=== PATIENT | female | born 1955 | race Caucasian/White ===

== ENCOUNTER 2022-05-04 15:19 | Inpatient (IN) | payer OTHER, SELFPAY ==
[2022-05-04 17:04] LABS: Albumin 3.5 g/dL (3.4-5.0); Bilirubin Direct 0.1 mg/dL (0-0.2); Bilirubin Total 0.4 mg/dL (0.2-1.0); Magnesium 2.3 mg/dL (1.8-2.4); Potassium 3.7 mmol/L (3.5-5.1); Protein, Total 7.2 g/dL (6.4-8.2)
[2022-05-04 17:06] LABS: Troponin High Sensitivity 172.4 pg/mL (<58.9)
[2022-05-04 17:11] LABS: Absolute Lymphocytes (CBC) 2.4 K/uL (0.7-4.9); Hematocrit 39.7 % (36.0-45.0); MCV 88.8 fL (80-100); MPV 7.4 fL (7.6-11.3); Protime INR 1.09; RBC Red Blood Cell Count 4.47 M/uL (3.86-4.86)
[2022-05-04] MEDS ORDERED: ASPIRIN 81 MG CHEWABLE TABLET ONE (17:20)
[2022-05-04] MEDS ORDERED: FUROSEMIDE 20 MG/ 2ML VIAL ONE (17:34)
[2022-05-04] MEDS ORDERED: LORazepam 2 MG/ML VIAL ONE (17:38)
--- NOTE | 2022-05-04 17:43 | RAD REPORT ---
EXAM DESCRIPTION: RAD - Chest Single View - 05/04/2022 5:01 pm CLINICAL HISTORY: SOB COMPARISON: No prior chest film TECHNIQUE: AP portable chest image was obtained 05/04/2022 5:01 pm . FINDINGS: Lung volumes are low. Diffusely prominent interstitial pattern throughout both lung berkowitz . Bilateral pleural effusions are present. Cardiomegaly and central vascular engorgement or seen. Tra maite is midline. No pneumothorax. No acute bony abnormality seen. No acute aortic findings suspected. IMPRESSION: Mild CHF/volume overload pattern with small bilateral pleural effusions.
--- NOTE | 2022-05-04 17:53 | RAD REPORT ---
EXAM DESCRIPTION: CT - Chest For Pe Angio - 05/04/2022 5:35 pm CLINICAL HISTORY: shortness of breath COMPARISON: No comparisons TECHNIQUE: Dynamically enhanced 3 mm thick images of the chest were obtained during administration o f approximately 150mL Isovue 370 IV contrast. Coronal and oblique MIP reconstruction images were gene rated and reviewed. Exam utilizes a protocol to evaluate the pulmonary arterial tree. All CT scans are performed using dose optimization technique as appropriate and may include automated exposure control or mA/KV adjustment according to patient size. FINDINGS: No pulmonary emboli are identified. No focal mass consolidation. Interstitial markings are prominent throughout both lung berkowitz. Bronchi al wall thickening is present. There is no endobronchial lesions seen. Small bilateral pleural effusi ons are present. Lung base atelectasis is present. Heart size is enlarged. Pericardial thickening and / or effusion present up to 10 mm in thickness. No acute aortic finding. Aortic opacification is not optimal on a PE protocol study. No pneumothorax. No mediastinal or hilar suspicious masses. No chest wall masses or abnormal axillary lymphadenopathy. IMPRESSION: No pulmonary emboli identified. Diffuse interstitial edema or infiltrate pattern along with cardiomegaly. Failure or volume overload would be a primary consideration. Cardiomegaly also has a 10 millimeter thick rim of pericardial thickening and/ or effusion. Small bilateral pleural effusions with lung base atelectasis.
--- NOTE | 2022-05-04 18:23 | ER ---
Nurse's Notes [facility] Name: Diana Manuel Age: 67 yrs Sex: Female : 1955 Arrival Date: 05/04/2022 Time: 15:21 Bed 25 Private MD: Diagnosis: Unspecified combined systolic (congestive) and diastolic (congestive) heart failure;Pleural effusion, not elsewhere classified;Subsequent non-ST elevation (NSTEMI) myocardial infarction Presentation: 05/04 15:37 Chief complaint: Patient states: she feels like she has had a hard time breathing for ap3 approx one month now, and has noticed that both of her feet have started to swell as of last week. Coronavirus screen: At this time, the client does not indicate any symptoms associated with coronavirus-19. Ebola Screen: No symptoms or risks identified at this time. Risk Assessment: Do you want to hurt yourself or someone else? Patient reports no desire to harm self or others. Onset of symptoms was March 2022. 15:37 Method Of Arrival: Ambulatory ap3 15:40 Initial Sepsis Screen: Does the patient meet any 2 criteria? No. Patient's initial ap3 sepsis screen is negative. Does the patient have a suspected source of infection? No. Patient's initial sepsis screen is negative. 15:40 Acuity: SHERON 3 ap3 Triage Assessment: 15:39 General: Appears distressed, Behavior is anxious. Pain: Denies pain. Neuro: Level of ap3 Consciousness is awake, alert, obeys commands, Oriented to person, place, time, situation. Cardiovascular: Patient's skin is warm and dry. Respiratory: Reports shortness of breath Airway is patent Respiratory effort is even, unlabored, Respiratory pattern is regular, symmetrical, Onset: The symptoms/episode began/occurred over the last month, the patient has mild shortness of breath. Musculoskeletal: Swelling present in right foot and left foot. Historical: - Allergies: 15:38 No Known Allergies; ap3 - Home Meds: 15:38 None [Active]; ap3 - PMHx: 15:38 Anxiety; ap3 - Immunization history:: Client reports having NOT received the Covid vaccine. - Social history:: Smoking status: Patient reports the use of cigarette tobacco products, smokes one pack cigarettes per day. Patient uses alcohol, occasionally. Screenin:40 Abuse screen: Denies threats or abuse. Nutritional screening: No deficits noted. ap3 Tuberculosis screening: No symptoms or risk factors identified. 18:43 Fall Risk IV access (20 points). Total Nguyễn Fall Scale indicates No Risk (0-24 pts). kr3 Assessment: 17:18 General: Appears distressed, uncomfortable, Behavior is calm, cooperative, anxious. kr3 Cardiovascular: Rhythm is sinus tachycardia. Respiratory: Airway is patent. 18:41 Reassessment: No changes from previously documented assessment. Patient and/or family kr3 updated on plan of care and expected duration. Pain level reassessed. Patient is alert, oriented x 3, equal unlabored respirations, skin warm/dry/pink. 20:03 Reassessment: pt ambulating to bathroom. steady gait, NAD. as6 Vital Signs: 15:37 Pulse 113; Resp 19; Temp 98.8; Pulse Ox 97% ; Weight 62.6 kg; Height 5 ft. 4 in. ap3 (162.56 cm); 15:40 BP 159 / 93; ap3 16:20 BP 162 / 111; Pulse 98; Resp 20; Pulse Ox 98% on R/A; kr3 17:20 BP 160 / 99; Pulse 97; Resp 20; Pulse Ox 99% on R/A; kr3 18:40 BP 178 / 112; Pulse 108; Resp 20; Pulse Ox 97% on R/A; kr3 20:03 BP 137 / 93; Pulse 80; Resp 17 S; Pulse Ox 96% on R/A; as6 15:37 Body Mass Index 23.69 (62.60 kg, 162.56 cm) ap3 ED Course: 15:21 Patient arrived in ED. mr 15:23 Shiv Avila PA is PHCP. cp 15:23 Shiv Simon MD is Attending Physician. cp 15:41 Triage completed. ap3 15:41 Arm band placed on left wrist. ap3 16:00 Mary Otoole, DONOVAN is Primary Nurse. kr3 16:25 Inserted saline lock: 22 gauge in left antecubital area, using aseptic technique. Blood kr3 collected. 17:03 XRAY Chest (1 view) In Process Unspecified. EDMS 17:37 CT Chest For PE Angio In Process Unspecified. EDMS 18:14 US Extremity Venous W Compression Porfirio In Process Unspecified. EDMS 18:22 Kristyn Carballo PA is Hospitalizing Provider. cp 18:42 No provider procedures requiring assistance completed. kr3 19:37 Primary Nurse role handed off by Mary Otoole RN as6 19:37 Attila Osuna, DONOVAN is Primary Nurse. as6 Administered Medications: 17:14 Drug: Aspirin Chewable Tablet 324 mg Route: PO; kr3 18:45 Follow up: Response: No adverse reaction kr3 17:35 Drug: Lasix (furosemide) 20 mg Route: IVP; Site: right antecubital; kr3 18:38 Follow up: Response: No adverse reaction; RASS: Alert and Calm (0) kr3 17:37 Drug: Ativan (LORazepam) 0.5 mg Route: IVP; Site: right antecubital; kr3 18:39 Follow up: Response: No adverse reaction; RASS: Alert and Calm (0) kr3 18:22 Drug: Metoprolol 25 mg Route: PO; kr3 18:25 Drug: Lovenox (enoxaparin) 1 mg/kg Route: Sub-Q; Site: right lower abdomen; kr3 Outcome: 18:23 Decision to Hospitalize by Provider. cp 05/06 09:58 Patient left the ED. jd3 Signatures: Dispatcher [employer] EDME Dashawn Kristin mr Shiv Avila PA PA Joseluis Yao RN RN jd3 Adele Agosto RN RN ap3 Attila Osuna, DONOVAN MAN as6 Mary Otoole, DONOVAN RN kr3 Corrections: (The following items were deleted from the chart) 05/04 18:38 18:38 Response: No adverse reaction kr3 kr3
--- NOTE | 2022-05-04 18:24 | EDPHYS ---
Physician Documentation [facility] Name: Diana Manuel Age: 67 yrs Sex: Female : 1955 Arrival Date: 05/04/2022 Time: 15:21 Bed 25 Private MD: ED Physician Shiv Simon HPI: 05/04 15:55 This 67 yrs old Female presents to ER via Ambulatory with complaints of Breathing cp Difficulty, Feet Swelling. 15:55 The patient has shortness of breath at rest. cp 15:55 Onset: The symptoms/episode began/occurred 1 month(s) ago. Duration: The symptoms are cp continuous, and are steadily getting worse. Associated signs and symptoms: Pertinent positives: swelling of feet, Pertinent negatives: chest pain, diaphoresis, fever, hemoptysis, vomiting. Severity of symptoms: in the emergency department the symptoms are unchanged despite home interventions. Historical: - Allergies: 15:38 No Known Allergies; ap3 - Home Meds: 15:38 None [Active]; ap3 - PMHx: 15:38 Anxiety; ap3 - Immunization history:: Client reports having NOT received the Covid vaccine. - Social history:: Smoking status: Patient reports the use of cigarette tobacco products, smokes one pack cigarettes per day. Patient uses alcohol, occasionally. ROS: 16:00 Constitutional: Negative for body aches, chills, fever, poor PO intake. cp 16:00 Eyes: Negative for injury, pain, redness, and discharge. cp 16:00 Cardiovascular: Positive for edema, Negative for chest pain, palpitations. cp 16:00 Neck: Negative for pain with movement, pain at rest, stiffness. cp 16:00 Respiratory: Positive for shortness of breath, on exertion. Negative for cough, wheezing. 16:00 Abdomen/GI: Negative for abdominal pain, vomiting, diarrhea, constipation. 16:00 Back: Negative for pain at rest, pain with movement. 16:00 Neuro: Negative for altered mental status, dizziness, headache, numbness, syncope, weakness. 16:00 All other systems are negative. Exam: 16:05 Constitutional: The patient appears in no acute distress, alert, awake, cp non-diaphoretic, non-toxic, well developed, well nourished, anxious. 16:05 Head/Face: Normocephalic, atraumatic. cp 16:05 Eyes: Periorbital structures: appear normal, Conjunctiva: normal, no exudate, no injection, Sclera: no appreciated abnormality, Lids and lashes: appear normal, bilaterally. 16:05 ENT: External ear(s): are unremarkable, Nose: is normal, Mouth: Lips: moist, Oral mucosa: moist, Posterior pharynx: Airway: no evidence of obstruction, patent. 16:05 Neck: ROM/movement: is normal, is supple, without pain, no range of motions limitations. 16:05 Chest/axilla: Inspection: normal, Palpation: is normal, no crepitus, no tenderness. 16:05 Cardiovascular: Rate: tachycardic, Rhythm: regular, Edema: pedal edema, that is mild, ankle edema, that is mild, JVD: is not appreciated. 16:05 Respiratory: the patient does not display signs of respiratory distress, Respirations: labored breathing, is not present, shallow respirations, that is mild, Breath sounds: decreased breath sounds, that are moderate, are heard in the left posterior lower lobe, right posterior middle lobe and right posterior lower lobe, stridor, is not appreciated, wheezing: is not appreciated. 16:05 Abdomen/GI: Inspection: abdomen appears normal, Palpation: abdomen is soft and non-tender, in all quadrants. 16:05 Back: pain, is absent, ROM is normal. 16:05 Skin: cellulitis, is not appreciated, no rash present. 16:05 Neuro: Orientation: to person, place \\T\\ time. Mentation: is normal, Cerebellar function: is grossly normal, Motor: moves all fours, strength is normal, Sensation: is normal. 16:25 ECG was reviewed by the Attending Physician. cp Vital Signs: 15:37 Pulse 113; Resp 19; Temp 98.8; Pulse Ox 97% ; Weight 62.6 kg; Height 5 ft. 4 in. ap3 (162.56 cm); 15:40 BP 159 / 93; ap3 16:20 BP 162 / 111; Pulse 98; Resp 20; Pulse Ox 98% on R/A; kr3 17:20 BP 160 / 99; Pulse 97; Resp 20; Pulse Ox 99% on R/A; kr3 18:40 BP 178 / 112; Pulse 108; Resp 20; Pulse Ox 97% on R/A; kr3 20:03 BP 137 / 93; Pulse 80; Resp 17 S; Pulse Ox 96% on R/A; as6 15:37 Body Mass Index 23.69 (62.60 kg, 162.56 cm) ap3 MDM: 16:00 Differential diagnosis: CHF exacerbation, Chronic Obstructive Pulmonary Disease cp Myocardial Infarction pneumonia, Pneumothorax pulmonary edema, Pulmonary Embolism Unstable Angina. 16:02 Patient medically screened. ryan 18:12 Data reviewed: vital signs, nurses notes, lab test result(s), EKG, radiologic studies, cp CT scan, plain films, ultrasound. Test interpretation: by ED physician or midlevel provider: ECG, plain radiologic studies. Physician consultation: Kristyn LEGER was called at 18:13, was contacted at 18:13, regarding admission, to the telemetry unit. patient's condition, and will see patient in ED, shortly. 05/04 15:51 Order name: Basic Metabolic Panel; Complete Time: 17:07 cp 05/04 17:08 Interpretation: Normal except: CL 109; GLUC 121; BUN 19; GFR 49. cp 05/04 15:51 Order name: CBC with Diff; Complete Time: 17:58 cp 05/04 17:58 Interpretation: Normal except: MPV 7.4. cp 05/04 15:51 Order name: D-Dimer; Complete Time: 17:58 cp 05/04 17:58 Interpretation: Abnormal: D-DIMER 965. cp 05/04 15:51 Order name: LFT's; Complete Time: 17:07 cp 05/04 15:51 Order name: Magnesium; Complete Time: 17:07 cp 05/04 15:51 Order name: NT PRO-BNP; Complete Time: 17:07 cp 05/04 17:08 Interpretation: Abnormal: NT PRO-BNP 7941. cp 05/04 15:51 Order name: PT-INR; Complete Time: 17:58 cp 05/04 18:00 Interpretation: Reviewed. cp 05/04 15:51 Order name: Troponin HS; Complete Time: 17:07 cp 05/04 17:08 Interpretation: Abnormal: Troponin HS 172.4. cp 05/04 15:51 Order name: COVID-19 SARS RT PCR (Document "Date of Onset" if Symptomatic); Complete cp Time: 18:10 05/04 23:10 Order name: Creatine Phosphokinase; Complete Time: 23:19 EDMS 05/04 23:10 Order name: CKMB Creatine Kinase MB; Complete Time: 23:19 EDMS 05/04 23:10 Order name: Troponin High Sensitivity; Complete Time: 23:19 EDSC 05/05 02:55 Order name: CBC with Automated Diff; Complete Time: 03:12 EDMS 05/05 03:09 Order name: Basic Metabolic Panel; Complete Time: 03:12 [facility] 05/04 15:51 Order name: XRAY Chest (1 view); Complete Time: 17:58 cp 05/04 17:58 Interpretation: Report review. 05/04 15:51 Order name: EKG; Complete Time: 15:52 cp 05/04 15:51 Order name: US Extremity Venous W Compression Porfirio; Complete Time: 20:13 cp 05/04 17:09 Order name: CT Chest For PE Angio; Complete Time: 17:58 cp 05/04 18:00 Interpretation: Report reviewed. 05/05 03:09 Order name: Troponin High Sensitivity; Complete Time: 03:12 [facility] 05/05 03:09 Order name: Lipid Profile; Complete Time: 03:12 EDSC 05/05 03:09 Order name: Magnesium; Complete Time: 03:12 EDMS 05/05 03:09 Order name: Thyroid Stimulating Hormone; Complete Time: 03:12 EDSC 05/05 03:18 Order name: Hemoglobin A1c; Complete Time: 05:06 EDMS 05/06 05:57 Order name: CBC with Automated Diff EDSC 05/06 05:57 Order name: Basic Metabolic Panel [facility] 05/04 15:51 Order name: Cardiac monitoring; Complete Time: 16:10 05/04 15:51 Order name: EKG - Nurse/Tech; Complete Time: 16:10 cp 05/04 15:51 Order name: IV Saline Lock; Complete Time: 16:04 cp 05/04 15:51 Order name: Labs collected and sent; Complete Time: 16:04 05/04 15:51 Order name: O2 Per Protocol; Complete Time: 16:02 05/04 15:51 Order name: O2 Sat Monitoring; Complete Time: 16:02 cp EC:25 Rate is 106 beats/min. Rhythm is regular. NM interval is normal. QRS interval is cp normal. QT interval is normal. T waves are Inverted in leads aVL, aVR. Interpreted by me. Reviewed by me. Administered Medications: 17:14 Drug: Aspirin Chewable Tablet 324 mg Route: PO; kr3 18:45 Follow up: Response: No adverse reaction kr3 17:35 Drug: Lasix (furosemide) 20 mg Route: IVP; Site: right antecubital; kr3 18:38 Follow up: Response: No adverse reaction; RASS: Alert and Calm (0) kr3 17:37 Drug: Ativan (LORazepam) 0.5 mg Route: IVP; Site: right antecubital; kr3 18:39 Follow up: Response: No adverse reaction; RASS: Alert and Calm (0) kr3 18:22 Drug: Metoprolol 25 mg Route: PO; kr3 18:25 Drug: Lovenox (enoxaparin) 1 mg/kg Route: Sub-Q; Site: right lower abdomen; kr3 Disposition Summary: 05/04/22 18:23 Hospitalization Ordered Hospitalization Status: Inpatient Admission cp Provider: Kristyn Carballo cp Condition: Stable cp Problem: new cp Symptoms: have improved cp Bed/Room Type: Standard cp Location: [facility] [place] ER HOLD(05/04/22 20:08) cg Room Assignment: ERHOLD-(05/04/22 20:08) cg Diagnosis - Unspecified combined systolic (congestive) and diastolic (congestive) heart failure cp - Pleural effusion, not elsewhere classified cp - Subsequent non-ST elevation (NSTEMI) myocardial infarction cp Forms: - Medication Reconciliation Form cp - SBAR form cp Signatures: Dispatcher [employer] EDShiv Dobbs MD MD cha Page, Corey, PA PA cp Garcia, Cindy, RN RN cg Adele Agosto RN RN ap3 Kristyn Carballo PA PA sb3 Mary Otoole RN RN kr3 Corrections: (The following items were deleted from the chart) 20:08 18:23 Telemetry/MedSurg (Inpatient) cp cg 20:08 18:23 cp cg
[2022-05-04] MEDS ORDERED: ENOXAPARIN 60 MG/0.6 ML SQ ONE (18:26)
[2022-05-04] MEDS ORDERED: METOPROLOL TAR 25 MG TAB ONE (18:26)
--- NOTE | 2022-05-04 19:43 | P.HP ---
Certification for Inpatient Patient admitted to: Observation With expected LOS: <2 Midnights Patient will require the following post-hospital care: None Practitioner: I am a practitioner with admitting privileges, knowledge of patient current condition, hospital course, and medical plan of care. Services: Services provided to patient in accordance with Admission requirements found in Title 42 Section 412.3 of the Code of Federal Regulations Patient History Date of Service: 05/04/22 Primary Care Provider: Josef Reason for admission: Acute CHF History of Present Illness: Patient is a 67-year-old female with anxiety who presented to the ED with complaints of shortness of breath for 1 month and feet swelling for 1 week. She was hypertensive and tachycardic initially but saturating appropriately on room air. Afebrile. Labs significant for BNP 7941, troponin high-sensitivity 172.4, D-dimer 965. EKG without ST changes. Chest x-ray significant for mild CHF with bilateral pleural effusions. CT chest angio negative for PE. Extremity venous ultrasound negative for DVT. She was given 324 mg aspirin, Ativan, 20 mg IV L asix, 25 metoprolol, and therapeutic Lovenox in the ED. upon my assessment, patient is complaining of shortness of breath. She denies any cardiac history or taking any medications on a daily basis. She denies chest pain. She is admitted for further evaluation and treatment. Home medications list reviewed: Yes (NA) - Past Medical/Surgical History Diabetic: No -: Anxiety -: Hysterectomy Psychosocial/ Personal History: Patient lives at home with a roommate. - Family History Sister -: Stroke - Social History Smoking Status: Current every day smoker Alcohol use: Yes CD- Drugs: No Caffeine use: Yes Place of Residence: Home Review of Systems Respiratory: Shortness of Breath Cardiovascular: Edema Physical Examination - Physical Exam General: Alert, In no apparent distress HEENT: Atraumatic, PERRLA, EOMI, Sclerae nonicteric Neck: Supple, Without JVD or thyroid abnormality Respiratory: Diminished, Crackles/rales Cardiovascular: Regular rate/rhythm, Normal S1 S2, Edema (1+ pedal pitting edema) Gastrointestinal: Normal bowel sounds, No tenderness Musculoskeletal: No tenderness Integumentary: No rashes Neurological: Normal speech, Normal strength at 5/5 x4 extr, Normal tone, Normal affect - Studies Laboratory Data (last 24 hrs) 05/04/22 16:30: PT 12.0, INR 1.09 05/04/22 16:30: WBC 10.1, Hgb 13.2, Hct 39.7, Plt Count 291 05/04/22 16:30: Sodium 142, Potassium 3.7, BUN 19 H, Creatinine 1.22, Glucose 121 H, Magnesium 2.3, Total Bilirubin 0.4, AST 26, ALT 82 H, Alkaline Phosphatase 106 Assessment and Plan - Problems (Diagnosis) (1) Acute CHF Current Visit: Yes Status: Acute Qualifiers: Heart failure type: unspecified Qualified Code(s): I50.9 - Heart failure, unspecified (2) Elevated troponin Current Visit: Yes Status: Acute (3) Elevated d-dimer Current Visit: Yes Status: Acute - Plan -Cardiology consulted and echo ordered. Monitor on telemetry. Patient denies cardiac history. She is an everyday smoker. -Elevated troponin and d-dimer likely secondary to acute CHF. CT angio negative for PE. US negative for DVT. Therapeutic lovenox given in ED. -20 mg lasix given in ED. Monitor output and adjust dosing as appropriate. Patient has never taken lasix before. -Repeat troponin ordered along with CPK and CKMB -Aspirin, atorvastatin, and metoprolol daily -Monitor and reconcile electrolytes per protocol -Lipid panel, TSH, and A1C ordered -Lovenox for VTE ppx -Full code Discharge Plan: Home Plan to discharge in: 24 Hours - Advance Directives Does patient have a Living Will: No Does patient have a Durable POA for Healthcare: No - Code Status/Comfort Care Code Status Assessed: Yes (Full) Critical Care: No Time Spent Managing Pts Care (In Minutes): 50
--- NOTE | 2022-05-04 19:59 | RAD REPORT ---
EXAM DESCRIPTION: US - Extrem Venous W Compress Porfirio - 05/04/2022 6:12 pm CLINICAL HISTORY: SWELLING COMPARISON: None. TECHNIQUE: Real-time sonographic evaluation of the bilateral lower extremity common femoral, superfi cial femoral, popliteal and posterior tibial veins was performed. FINDINGS: Normal compressibility, flow augmentation, phasic flow and spontaneous flow are identified in the left and right lower extremity common femoral, superficial femoral, popliteal and posterior t ibial veins. No intraluminal filling defects seen. IMPRESSION: No DVT in either lower extremity.
[2022-05-04 21:07] VITALS: BMI 23.6
[2022-05-04] MEDS ORDERED: ONDANSETRON 4 MG/2 ML VIAL IV PRN (21:10)
[2022-05-04] MEDS ORDERED: ALPRAZOLAM 0.25 MG TABLET PO PRN (21:10)
[2022-05-04] MEDS ORDERED: ACETAMINOPHEN 500 MG TAB PO PRN (21:10)
[2022-05-04] MEDS ORDERED: ALBUTEROL 2.5 MG/3 ML NEB SOL NEB PRN (21:10)
[2022-05-04] MEDS: ATORVASTATIN 40 MG TAB PO SCH (21:10)
[2022-05-04] MEDS ORDERED: ATORVASTATIN 20 MG TAB ONE (21:32)
[2022-05-04 23:09] LABS: Troponin High Sensitivity 140.6 pg/mL (<58.9)
[2022-05-05] MEDS ORDERED: ALBUTEROL 2.5 MG/3 ML NEB SOL ONE ×2 (00:06→00:07)
[2022-05-05] MEDS ORDERED: ALPRAZOLAM 0.25 MG TABLET ONE (00:32)
[2022-05-05 02:50] LABS: Hematocrit 35.4 % (36.0-45.0); Lymphocytes % 28.7 % (15.3-44.8); MCV 86.7 fL (80-100); MPV 7.2 fL (7.6-11.3); RBC Red Blood Cell Count 4.08 M/uL (3.86-4.86)
[2022-05-05 03:08] LABS: Magnesium 2.1 mg/dL (1.8-2.4); Potassium 3.9 mmol/L (3.5-5.1); Thyroid Stimulating Hormone 2.74 uIU/mL (0.360-3.740)
[2022-05-05 03:09] LABS: Troponin High Sensitivity 120.2 pg/mL (<58.9)
[2022-05-05] MEDS ORDERED: METOPROLOL TAR 25 MG TAB PO SCH (06:00)
[2022-05-05] MEDS ORDERED: NICOTINE 21 MG/PAT TD ONE (06:15)
[2022-05-05] MEDS ORDERED: METOPROLOL TAR 25 MG TAB ONE (06:16)
[2022-05-05] MEDS ORDERED: ONDANSETRON 4 MG/2 ML VIAL ONE (06:57)
[2022-05-05] MEDS ORDERED: PNEUMOCOCCAL VACCINE 0.5 ML IMVAC ONE (08:00)
[2022-05-05] MEDS ORDERED: NICOTINE 21 MG/PAT TD SCH (09:00)
[2022-05-05] MEDS: FUROSEMIDE 20 MG/ 2ML VIAL IV SCH ×2 (09:00→17:00)
[2022-05-05] MEDS ORDERED: ENOXAPARIN 40 MG/0.4 ML SQ SCH (09:00)
[2022-05-05] MEDS ORDERED: ASPIRIN EC 81 MG TAB PO SCH (09:00)
[2022-05-05] MEDS ORDERED: FUROSEMIDE 20 MG/ 2ML VIAL ONE ×2 (10:29→17:39)
[2022-05-05] MEDS ORDERED: ASPIRIN EC 81 MG TAB PO ONE (10:30)
[2022-05-05] MEDS ORDERED: ENOXAPARIN 40 MG/0.4 ML SQ ONE (10:30)
--- NOTE | 2022-05-05 12:38 | EKG ---
Test Date: 2022-05-04 Test Time: 16:18:07 Apricot Washer: LML MEASUREMENT RESULTS: Intervals: Rate: 106 AR: 164 QRSD: 72 QT: 358 QTc: 475 Roscoe: P: 71 AR: 164 QRS: -14 T: 77 INTERPRETIVE STATEMENTS: Sinus tachycardia with occasional premature ventricular complexes Possible Anterior infarct, age undetermined Abnormal ECG No previous ECG available for comparison Electronically Signed On 05-05-22 12:37:03 CDT by Pineda Waller
--- NOTE | 2022-05-05 13:04 | ECHO ---
HEIGHT: 5 ft 4 in WEIGHT: 138 lb 0.15 oz DATE OF STUDY: 05/05/[address]: Kristyn Carballo 2-DIMENSIONAL: YES M.MODE: YES DOPPLER: YES COLOR FLOW: YES TDS: NO PORTABLE: YES DEFINITY: NO BUBBLE STUDY: NO DIAGNOSIS: ACUTE CONGESTIVE FAILURE CARDIAC HISTORY: CATHERIZATION: SURGERY: PROSTHETIC VALVE: PACEMAKER: MEASUREMENTS (cm) DIASTOLIC (NORMALS) SYSTOLIC (NORMALS) IVSd 1.0 (0.6-1.2) LA Diam 3.9 (1.9-4.0) LVEF 30% LVIDd 4.9 (3.5-5.7) LVIDs 4.2 (2.0-3.5) %FS 14% LVPWd 1.1 (0.6-1.2) Ao Diam 2.4 (2.0-3.7) 2 DIMENSIONAL ASSESSMENT: RIGHT ATRIUM: NORMAL LEFT ATRIUM: NORMAL RIGHT VENTRICLE: NORMAL LEFT VENTRICLE: DEPRESSED FUNCTION TRICUSPID VALVE: MITRAL VALVE: PULMONIC VALVE: NORMAL AORTIC VALVE: NORMAL PERICARDIAL EFFUSION: SMALL AORTIC ROOT: NORMAL LEFT VENTRICULAR WALL MOTION: SEVERE GLOBAL HYPOKINESIS WITH APICAL/ANTERIOR AKINESIS. DOPPLER/COLOR FLOW: SEE BELOW. COMMENTS: SEVERELY DEPRESSED LEFT VENTRICULAR EJECTION FRACTION OF 25-30%. WALL MOTION ABNORMALITIES STATED ABOVE. MODERATE DIASTOLIC DYSFUNCTION. MILD TRICUSPID, MITRAL AND AORTIC REGURGITATION. MODERATE PULMONARY HYPERTENSION. TECHNOLOGIST: Geno MEDRANO
[2022-05-05] MEDS ORDERED: ALBUTEROL 2.5 MG/3 ML NEB SOL NEB PRN (15:00)
--- NOTE | 2022-05-05 16:42 | P.PN ---
Subjective Date of Service: 05/05/22 Primary Care Provider: Josef Chief Complaint: Acute CHF Patient states she feels better today. She reports significant improvement in shortness of breath. She denies any chest pain. Physical Examination - Vital Signs Temperature: 97.6 F Blood Pressure: 124/80 Pulse: 75 Respirations: 17 Pulse Ox (%): 98 - Studies Laboratory Data (last 24 hrs) 05/04/22 16:30: PT 12.0, INR 1.09 05/04/22 16:30: WBC 10.1, Hgb 13.2, Hct 39.7, Plt Count 291 05/04/22 16:30: Sodium 142, Potassium 3.7, BUN 19 H, Creatinine 1.22, Glucose 121 H, Magnesium 2.3, Total Bilirubin 0.4, AST 26, ALT 82 H, Alkaline Phosphatase 106 Assessment And Plan - Current Problems (Diagnosis) (1) Acute systolic heart failure Current Visit: Yes Status: Acute (2) Elevated troponin Current Visit: Yes Status: Acute - Plan Physical Exam General: Alert, In no apparent distress HEENT: Atraumatic, PERRLA, EOMI, Sclerae nonicteric Neck: Supple, Without JVD. Respiratory: Bilateral Crackles/rales Cardiovascular: Regular rate/rhythm, Normal S1 S2, Edema (1+ pedal pitting edema) Gastrointestinal: Normal bowel sounds, No tenderness Musculoskeletal: No tenderness Integumentary: No rashes Neurological: Normal speech, Normal strength at 5/5 x4 extr, Normal tone, Normal affect Echocardiogram reviewed and reporting EF of 20 to 25%. New onset CHF. Etiology unknown. Need to rule out CAD. Elevated troponin trended down. ACS not likely. Elevated troponin likely secondary to demand leak Cardiology to follow Continue Lasix. CT angio negative for PE. US negative for DVT. Therapeutic lovenox given in ED. Aspirin. Start low-dose lisinopril and Coreg. Discontinue metoprolol LDL above target. Continue Lipitor Lovenox for VTE ppx Full code
[2022-05-05] MEDS ORDERED: carvediloL 3.125 MG TAB PO SCH (18:00)
[2022-05-05] MEDS: ATORVASTATIN 40 MG TAB PO SCH (20:50)
[2022-05-05] MEDS ORDERED: ATORVASTATIN 20 MG TAB ONE (20:54)
[2022-05-05 23:35] VITALS: TEMP 98.1
[2022-05-06 01:28] VITALS: O2SAT 95
[2022-05-06 02:50] LABS: Lymphocytes % 19.8 % (15.3-44.8); MCV 88.4 fL (80-100); MPV 7.6 fL (7.6-11.3); RBC Red Blood Cell Count 4.07 M/uL (3.86-4.86)
[2022-05-06 04:41] LABS: Potassium 3.7 mmol/L (3.5-5.1)
[2022-05-06 05:48] VITALS: BP 116/58
[2022-05-06] MEDS ORDERED: lisinopriL 5 MG TAB PO SCH (09:00)
--- NOTE | 2022-05-06 13:15 | P.DS ---
Admission Date: 05/05/22 Discharge Date: 05/06/22 Primary Care Provider: Josef Disposition: ROUTINE DISCHARGE Discharge Condition: FAIR Reason for Admission: Acute CHF - Problems (1) Acute systolic heart failure Status: Acute (2) Elevated troponin Status: Acute (3) Tobacco use Status: Acute Brief History of Present Illness: Patient is a 67-year-old female with anxiety who presented to the ED with complaints of shortness of breath for 1 month and feet swelling for 1 week. She was hypertensive and tachycardic initially but saturating appropriately on room air. Afebrile. Labs significant for BNP 7941, troponin high-sensitivity 172.4, D-dimer 965. EKG without ST changes. Chest x-ray significant for mild CHF with bilateral pleural effusions. CT chest angio negative for PE. Extremity venous ultrasound negative for DVT. She was given 324 mg aspirin, Ativan, 20 mg IV Lasix, 25 metoprolol, and therapeutic Lovenox in the ED. She denies any cardiac history or taking any medications on a daily basis. She denied chest pain. Patient admitted for further management. Hospital Course: Patient admitted to the medical floor. Troponin was slightly elevated but trended down. Echocardiogram reviewed and reporting EF of 20 to 25%. New onset CHF. Etiology unknown. Need to rule out CAD. Elevated troponin trended down. ACS not likely. Elevated troponin likely secondary to demand leak Cardiology saw patient and recommending cardiac catheterization. Patient not wait for couple of days before cardiac cath and preferred outpatient follow-up. She was treated with IV Lasix, and started on low-dose lisinopril, Coreg, aspirin and statins. CT angio negative for PE. US negative for DVT. She was briefly treated with therapeutic dose Lovenox. ACS ruled out. Patient is discharged to follow with Dr. Crowell as an outpatient next week for arrangement for cardiac cath. Patient advised to quit smoking. Vital Signs/Physical Exam: Temp Pulse Resp BP Pulse Ox 98.1 F 86 16 116/58 L 88 L 05/05/22 20:00 05/06/22 04:00 05/05/22 20:00 05/06/22 04:00 05/06/22 04:00 General: Alert, In no apparent distress, Oriented x3 HEENT: Mucous membr. moist/pink Neck: Supple, JVD not distended Respiratory: Clear to auscultation bilaterally, Normal air movement Cardiovascular: No edema, Regular rate/rhythm, Normal S1 S2, No murmurs Gastrointestinal: Normal bowel sounds, Soft and benign, Non-distended, No tenderness Musculoskeletal: No swelling Integumentary: No rashes, No cyanosis Neurological: Normal strength at 5/5 x4 extr Laboratory Data at Discharge: WBC 10.3 K/uL (4.3-10.9) 05/06/22 02:12 Hgb 12.2 g/dL (12.0-15.0) 05/06/22 02:12 Hct 36.0 % (36.0-45.0) 05/06/22 02:12 Plt Count 274 K/uL (152-406) 05/06/22 02:12 PT 12.0 SECONDS (9.5-12.5) 05/04/22 16:30 INR 1.09 05/04/22 16:30 Sodium 140 mmol/L (136-145) 05/06/22 02:12 Potassium 3.7 mmol/L (3.5-5.1) 05/06/22 02:12 BUN 27 mg/dL (7-18) H 05/06/22 02:12 Creatinine 1.35 mg/dL (0.55-1.3) H 05/06/22 02:12 Glucose 181 mg/dL (74-106) H 05/06/22 02:12 Magnesium 2.1 mg/dL (1.8-2.4) 05/05/22 02:25 Total Bilirubin 0.4 mg/dL (0.2-1.0) 05/04/22 16:30 AST 26 U/L (15-37) 05/04/22 16:30 ALT 82 U/L (12-78) H 05/04/22 16:30 Alkaline Phosphatase 106 U/L (45-117) 05/04/22 16:30 Triglycerides 115 mg/dL (<150) 05/05/22 02:25 Cholesterol 172 mg/dL (<200) 05/05/22 02:25 HDL Cholesterol 44 mg/dL (40-60) 05/05/22 02:25 Cholesterol/HDL Ratio 3.91 05/05/22 02:25 Home Medications: Aspirin [Aspirin EC 81 MG] 81 mg PO DAILY #30 05/06/22 Atorvastatin Calcium [Lipitor] 40 mg PO BEDTIME #30 tab 05/06/22 Furosemide [Lasix] 40 mg PO DAILY #30 tab 05/06/22 Lisinopril [Zestril] 2.5 mg PO DAILY #30 tablet 05/06/22 Spironolactone [Aldactone] 25 mg PO DAILY #30 tab 05/06/22 carvediloL [Coreg*] 3.125 mg PO BID 6AM 6PM #60 tab 05/06/22 New Medications: Spironolactone [Aldactone] 25 mg PO DAILY #30 tab Aspirin [Aspirin EC 81 MG] 81 mg PO DAILY #30 carvediloL [Coreg*] 3.125 mg PO BID 6AM 6PM #60 tab Furosemide [Lasix] 40 mg PO DAILY #30 tab Atorvastatin Calcium [Lipitor] 40 mg PO BEDTIME #30 tab Lisinopril [Zestril] 2.5 mg PO DAILY #30 tablet Diet: AHA Activity: Ad sunshine Followup: Shaquille Crowell MD [ACTIVE - CAN ADMIT] - 1 Week Unknown,U [Primary Care Provider] - Time spent managing pt's care (in minutes): 37
--- NOTE | 2022-05-08 22:47 | PN ---
Subjective: Ms. Manuel is a 67-year-old woman who was admitted on 05/04/2022 with new onset congestiv e heart failure. Echocardiogram showed reduced ejection fraction about 25%. The patient is feeling much better on present therapy. This is new onset, acute systolic congestive heart failure. I think she outpatient Lexiscan and maybe a catheterization down the road to rule out coronary ar og disease. Meanwhile, she should be on aspirin, beta sd, IRIS inhibitors, Lasix as well as lo w-dose Aldactone. The case was discussed with Dr. Arce. She can definitely go home and I will see her in the office in the next week or two. ELBERT/SAROJ Voice ID: [id number] Report ID: [id number]
--- NOTE | 2022-05-09 10:03 | CON ---
Date of Consultation: 05/05/2022 Reason For Consultation: Congestive heart failure, new onset. History Of Present Illness: Ms. Manuel is a 67-year-old woman, who supposedly had no history except f or anxiety, came in with shortness of breath, pedal edema, PND, orthopnea. Denied any chest pain, na usea, vomiting, diaphoresis. Denied any palpitation or syncope. Denied any fever or chills or cough . Chest x-ray showed mild congestive heart failure. Her troponin was 170, which decreased to 120. Her D-dimer was 965. CT of the chest showed negative for pulmonary embolus. She had, what appeared to be, pericardial thickening or pericardial effusion by CT. Past Medical History: Otherwise, negative. Allergies: NONE. Review of Systems: Negative. Social History: Negative. Family History: Negative. Medications: None. Physical Examination: General: Ms. Manuel was rather anxious, but she was short of breath. Vital Signs: Stable sinus rhythm, afebrile. HEENT: Negative. Neck: Supple. No bruit, lymphadenopathy, JVD, or thyromegaly. Chest: Reveals rales both bases. Cardiac: Revealed regular rhythm and rate with S3 gallops. Abdomen: Benign. Extremities: Revealed 2+ edema to the knee. Impression And Plan: Acute congestive heart failure, most likely systolic by examination. Echocardi ogram is pending. We will see what that showed before making further decision, but for now she needs to be on low-dose beta-sd and Lasix and low-dose IRIS inhibitor. After the echocardiogram we ma y make different recommendations. She will eventually need an outpatient Lexiscan and a catheterizat ion if her ejection fraction is low. ELBERT/DEMETRIUSL Voice ID: [id number] Report ID: [id number]
== END 2022-05-06 09:57 | disposition home or self-care (01) | DRG 293 ==
LOC: ER 15:19 → ERHOLD 19:32 → OBSVTOIN 05-05 16:36
PROVIDERS: ADMIT Hospitalist; ATTEND Internal Medicine
DX: I50.21 Acute systolic (congestive) heart failure (principal); F41.9 Anxiety disorder, unspecified; F17.210 Nicotine dependence, cigarettes, uncomplicated; Z20.822 Contact with and (suspected) exposure to COVID-19; Z28.310 Unvaccinated for COVID-19; Z90.710 Acquired absence of both cervix and uterus; Z82.3 Family history of stroke
CPT/HCPCS: 36415; 71045; 71275; 80048; 80061; 80076; 82550; 82553; 83036; 83735; 83880; 84443; 84484; 85025; 85379; 85610; 93005; 93306; 93970; 94640; 94760; 96372; 96374; 96375; 99284; G0378; J1650; J1940; J2405; U0003

== ENCOUNTER 2022-06-30 06:40 | Day surgery (SDC) | payer OTHER ==
[2022-06-26 15:40] LABS: SARS-CoV-2 Antigen Rapid Res Negative (Negative)
[2022-06-30] MEDS ORDERED: FENTANYL CITR 100 MCG/2 ML ONE (06:45)
[2022-06-30] MEDS ORDERED: MIDAZOLAM HCL 2 MG/2 ML INJ ONE (06:46)
[2022-06-30] MEDS ORDERED: ATROPINE SULF 1 MG/10 ML SYR IV ONE (06:47)
[2022-06-30] MEDS ORDERED: NA CHLORIDE 0.9% 0 ML IV ONE (06:47)
[2022-06-30] MEDS ORDERED: HEPA 1000U/500MLS 2,000 UNIT/1,000 ML BAG IV ONE (06:57)
[2022-06-30] MEDS ORDERED: LIDOCAINE 1% MPF 30 ML VIAL ONE (06:57)
[2022-06-30] MEDS ORDERED: NA CHLORIDE 0.9% 500 ML ONE (07:10)
[2022-06-30 10:19] VITALS: BP 124/42; O2SAT 100
--- NOTE | 2022-06-30 22:37 | OP ---
Surgeon: Shaquille Crowell MD History: Ms. Manuel is 67, has a history of hypertension, dyslipidemia, unstable angina, came into [facility] today as an outpatient for left heart catheterization, selective coronary arteriogram, com mon femoral artery angiogram. Indication: Unstable angina. Procedure In Detail: In the [facility], she was prepped and draped in routine sterile fashion. Given Versed and fentanyl for sedation. A 6-Georgian sheath introduced in the right common femoral artery richey ccessfully using the Seldinger technique and 10 cc of xylocaine. Angiography in the common femoral a rtery was normal. Angio-Seal was used to close the case. Lizz catheter left and right was used t o cannulate the left main and right main respectively. RCA had minimal coronary artery disease that was dominant. Her left main was normal. Large circumflex was normal. She had 99% ostial long LAD s tenosis that looked like an ulcerated plaque. She had another 70-80 percent mid LAD stenosis. The p atient tolerated the procedure well. There were no complications. Conscious sedation was 45 minutes . Blood Loss: 5 cc. Impression And Plan: Severe coronary artery disease, ostial LAD, mid LAD stenosis, not a candidate f or stent. The patient will be going to [place] for [place] bypass surgery by Dr. Germán Hylton. Case was discussed with the family and the patient. Case was discussed with Dr. Hylton. Hydraulic Press Servicer will be myself and assistant branch manager will be Ms. Nabila Morales. Transfer to [facility] with a CD with the patient has been initiated. ELBERT/SAROJ Voice ID: [id number] Report ID: [id number]
== END 2022-06-30 10:19 | disposition short-term general hospital (02) ==
LOC: CCL 06:40
DX: I25.110 Atherosclerotic heart disease of native coronary artery with unstable angina pectoris (principal); I10 Essential (primary) hypertension; E78.5 Hyperlipidemia, unspecified; Z20.822 Contact with and (suspected) exposure to COVID-19
CPT/HCPCS: 36415; 87811; 93454; C1760; C1893; G0269; J0583; J1644; J2250; J3010; J7040; Q9967

== ENCOUNTER 2024-05-29 07:55 | Day surgery (SDC) | payer OTHER ==
[2024-05-26 16:22] LABS: Absolute Eosinophils 0.2 K/uL (0-0.5); Absolute Lymphocytes (CBC) 2.4 K/uL (0.7-4.9); Absolute Monocytes 0.6 K/uL (0.1-1.3); Absolute Neutrophil 6.2 K/uL (1.8-8.0); Basophils % 0.5 % (0-1.3); Eosinophils % 2.4 % (0-4.4); Hematocrit 42.2 % (36.0-45.0); Hemoglobin 14.2 g/dL (12.0-15.0); Lymphocytes % 25.3 % (15.3-44.8); MCH 31.6 pg (27.0-35.0); MCHC 33.6 g/dL (32.0-36.0); MCV 93.9 fL (80-100); MPV 7.4 fL (7.6-11.3); Monocytes % 6.6 % (3.3-12.3); Neutrophils % 65.2 % (41.7-73.7); Platelets 253 thou/uL (152-406); Red Cell Distribution Width 12.6 % (12.1-15.2)
[2024-05-26 16:33] LABS: Anion Gap 5.2 mEq/L (5.0-15.0); Potassium 4.2 mEq/L (3.5-5.1)
--- NOTE | 2024-05-26 22:09 | RAD REPORT ---
[facility] DES[facility]26/2024 3:53 pm CLINICAL HISTORY: pre op for surgery. Hypertension COMPARISON: Chest Pa And Lat (2 Views) dated 07/16/2022; Chest Pa And Lat (2 Views) dated 06/16/2022; C hest Single View dated 05/04/2022 TECHNIQUE: PA and lateral views of the chest. FINDINGS: The lungs are clear. No pneumothorax or effusion. The cardiomediastinal contours are unch anged, with sequelae of CABG again seen. IMPRESSION: No acute cardiopulmonary process.
[2024-05-29] MEDS ORDERED: SUGAMMADEX SODIUM 200 MG/2 ML VIAL IV ONE (08:10)
[2024-05-29] MEDS ORDERED: SUCCINYLCHOLINE 20 MG/ML (10 ML) IV ONE (08:10)
[2024-05-29] MEDS: Ringers Lactate 1,000 ML IV ONE (08:22)
[2024-05-29] MEDS ORDERED: LIDOCAINE 2% MPF 5 ML VIAL ONE (08:32)
[2024-05-29] MEDS ORDERED: ONDANSETRON 4 MG/2 ML VIAL ONE (08:32)
[2024-05-29] MEDS ORDERED: propofoL 200 MG/20 ML VIAL IV ONE (08:32)
[2024-05-29] MEDS ORDERED: FENTANYL CITR 100 MCG/2 ML ONE (08:32)
[2024-05-29] MEDS ORDERED: MIDAZOLAM HCL 2 MG/2 ML INJ ONE (09:03)
[2024-05-29] MEDS ORDERED: dexAMETHasone 10 MG/ML VIAL ONE (09:15)
[2024-05-29] MEDS ORDERED: EPHEDRINE SULF 50 MG/ML VIAL ONE (09:17)
[2024-05-29] MEDS: CEFAZOLIN SODIUM 1 GM/VIAL ONE (09:18)
--- NOTE | 2024-05-29 10:03 | P.BOP ---
Preoperative diagnosis: tender prolapsed hemoirrhoid/perianal mass Postoperative diagnosis: same Primary procedure: EUA, anoscopy, rigid proctoscopy, External hemorrhoidectomy Estimated blood loss: <5cc Specimen: hemorrhoid/lump Anesthesia: General Complications: None Transferred to: Recovery Room Condition: Good
[2024-05-29 12:35] VITALS: BP 187/67; TEMP 96.7; O2SAT 100
--- NOTE | 2024-05-30 17:58 | EKG ---
Test Date: 2024-05-26 Test Time: 15:42:28 [employer]: [facility] MEASUREMENT RESULTS: Intervals: Rate: 60 KS: 168 QRSD: 94 QT: 442 QTc: 442 Barnard: P: 58 KS: 168 QRS: 16 T: 93 INTERPRETIVE STATEMENTS: Normal sinus rhythm Possible Left atrial enlargement Septal infarct, age undetermined Abnormal ECG Compared to ECG 06/16/2022 11:04:18 Myocardial infarct finding now present Left ventricular hypertrophy no longer present Electronically Signed On 05-30-24 17:49:50 CDT by Chung Araujo
--- NOTE | 2024-05-30 22:47 | OP ---
Surgeon: Roberto Cohn MD Preoperative Diagnoses: Tender prolapsed hemorrhoids, perianal mass. Postoperative Diagnoses: Tender prolapsed hemorrhoids, perianal mass. Procedures: Exam under anesthesia, anoscopy, rigid proctoscopy, external hemorrhoidectomy. Estimated Blood Loss: Less than 5 cc. Specimens: Hemorrhoid/lump. Anesthesia: General plus local. Findings: The patient had this lump in the perianal region. It looked like an external hemorrhoid t hat is prolapsing, not reducing, so we took that specimen and sent it to the pathologist. There were no other masses seen in that region. Indications: This is a case of a 69-year-old patient, comes to us with this perianal lump. She has been trying to reduce it. She has some internal and external hemorrhoids. This has not reduced and it looked like despite treatments and creams and despite sitz baths and not doing heavy lifting, it i s not improving. She was sent to us with lump in that region. We are not going to rule out any othe r neoplasm in that area, but at the same time, we will have an examination under anesthesia and deter mine better the source of this. So, we explained to her the benefits, alternatives, and r isks of EUA, anoscopy, proctoscopy, possible hemorrhoidectomy with benefits, alternatives, and risks including, but not limited to infection, bleeding, damage to adjacent structures, anesthesia complica tion, anal stricture and incontinence, MA, and even . She also understands this may not relieve the symptoms. She might need more than one surgical intervention. She understood, signed a consent . Description Of Procedure: The patient was brought to the operating room, placed in supine position. Anesthesia was without complication. The patient was placed in lithotomy position with proper prote ction. After that, a time-out was called. Rectal examination was done. We confirmed the lump is pr esent in that region. It is a combination between the polypoid lesion and the hemorrhoid. So, we pu t proctoscope followed by anoscope with a window on the side to define the area better. We proceeded then to remove that, which looked like an external hemorrhoid with a polypoid lesion on top, so we o pened the anoderm, the hemorrhoidal plexus and the lump and transected that after separatin g this from the sphincter using Harmonic scalpel. The area was irrigated. The anoderm was approxima arianna with chromic Surgicel over that area. The specimen was sent to the pathologist. We checked the area. No bleeding. No hematoma. We injected some local anesthetic, and then after that, we proceed ed to obtain a sponge count, instrument counts correct, and then sent the patient to recovery in stab le condition. GUIDO/SAROJ Voice ID: [id number] Report ID: [id number]
== END 2024-05-29 10:58 | disposition home or self-care (01) ==
LOC: OR 07:55
PROVIDERS: ATTEND Surgery
PROC: 0DJD8ZZ Inspection of Lower Intestinal Tract, Via Natural or Artificial Opening Endoscopic (ICD-10-PCS; 2024-05-29)
PROC: 06BY0ZC Excision of Hemorrhoidal Plexus, Open Approach (ICD-10-PCS; principal; 2024-05-29 09:15)
DX: K64.4 Residual hemorrhoidal skin tags (principal); K62.5 Hemorrhage of anus and rectum; I10 Essential (primary) hypertension; F32.A Depression, unspecified; E78.00 Pure hypercholesterolemia, unspecified; Z79.82 Long term (current) use of aspirin
CPT/HCPCS: 93005; 85025; 80048; 36415; 88304; 71046; 46999; 45300; J2704; J2001; J2250; J3010; J1100; J2405; J7120; J0690